=== PATIENT | female | born 1935 | race Caucasian/White ===

== ENCOUNTER → 2016-03-17 | Outpatient (CLI) | payer MEDICARE, OTHER ==
[~2016-03-17] MED LIST: COUMADIN2 M1 PO; DONEPEZIL HYDROC5 MG PO; LASIX20 MG PO; LOSARTAN POTAS100 M1 PO; METOPROLOL SR25 MG PO; OMEPRAZOLE20 MG PO; SIMVASTATIN20 MG PO; SYNTHROID,LEVO25 MCG PO; VESICARE5 MG PO
[2016-03-17 10:56] LABS: INTERNATIONAL NORM RATIO 1.5 (2.0-3.5); PROTHROMBIN TIME 15.8 SECONDS (9.0-12.4)
== END | disposition home or self-care (01) ==
LOC: LAB 09:57
PROVIDERS: Specialist
DX: I48.91 Unspecified atrial fibrillation (principal); Z79.01 Long term (current) use of anticoagulants

== ENCOUNTER → 2016-06-08 | Outpatient (CLI) | payer MEDICARE, OTHER ==
[2016-06-08 10:31] LABS: INTERNATIONAL NORM RATIO 3.2 (2.0-3.5); PROTHROMBIN TIME 36.9 SECONDS (9.0-12.4)
== END | disposition home or self-care (01) ==
LOC: LAB 09:15
PROVIDERS: Specialist
DX: Z79.01 Long term (current) use of anticoagulants (principal)

== ENCOUNTER → 2016-06-27 | Outpatient (CLI) | payer MEDICARE, OTHER ==
[2016-06-27 11:56] LABS: INTERNATIONAL NORM RATIO 2.8 (2.0-3.5); PROTHROMBIN TIME 31.4 SECONDS (9.0-12.4)
== END | disposition home or self-care (01) ==
LOC: LAB 10:48
PROVIDERS: Specialist
DX: Z79.01 Long term (current) use of anticoagulants (principal)

== ENCOUNTER → 2016-10-30 | Outpatient (CLI) | payer MEDICARE, OTHER ==
[2016-10-30 09:57] LABS: BUN 14 mg/dl (7-24); CHLORIDE 104 mmol/L (98-107); CHOLESTEROL 147 mg/dL (<200); HDL CHOLESTEROL 74 mg/dl (40-60); LDL CHOLESTEROL 58 mg/dL (9-159); POTASSIUM 3.8 mmol/L (3.5-5.1); SGPT/ALT 19 U/L (12-78); SODIUM 142 mmol/L (136-145); TRIGLYCERIDES 74 mg/dl (<150); VLDL CHOLESTEROL 15 mg/dL (6-40)
[2016-10-30 10:00] LABS: INTERNATIONAL NORM RATIO 3.5 (2.0-3.5)
== END | disposition home or self-care (01) ==
LOC: LAB 08:53
PROVIDERS: Internal Medicine
DX: I48.91 Unspecified atrial fibrillation (principal); I10 Essential (primary) hypertension; I63.9 Cerebral infarction, unspecified

== ENCOUNTER → 2016-12-04 | Outpatient (CLI) | payer MEDICARE, OTHER ==
[2016-12-04 10:36] LABS: INTERNATIONAL NORM RATIO 1.1 (2.0-3.5)
== END | disposition home or self-care (01) ==
LOC: LAB 09:30
PROVIDERS: Internal Medicine
DX: I48.91 Unspecified atrial fibrillation (principal)